=== PATIENT | male | born 1990 | race Caucasian/White ===

== ENCOUNTER 2018-10-21 12:43 | Emergency (ER) | payer MEDICAID ==
[~2018-10-21] VITALS: Ht 188 cm; Wt 68.0 kg
[~2018-10-21 12:43] MED LIST: ALBU90OI INH; Aerochamber1 EACH INH; CODACE15 PO; IBUP400 PO; Naprosyn500 MG PO; PENVK250 PO; PENVK500 PO; TRAM50 PO; Ultram50 MG PO; Veetids 500500 MG PO
[2018-10-21] MEDS ORDERED: Flonase 0.05% N16 GM (13:09)
[2018-10-21] MEDS ORDERED: Sudogest30 MG PO (13:09)
== END 2018-10-21 13:22 | disposition home or self-care (01) ==
LOC: ER 12:43
DX: J06.9 Acute upper respiratory infection, unspecified (principal); F17.210 Nicotine dependence, cigarettes, uncomplicated
CPT/HCPCS: 99283